=== PATIENT | male | born 1970 | race African-American/Black ===

== ENCOUNTER 2017-11-17 14:03 | Emergency (ER) | payer SELFPAY ==
[~2017-11-17] VITALS: Ht 190.5 cm; Wt 98.0 kg
[2017-11-17] MEDS ORDERED: KETOROLAC 60MG/2ML VIAL IM STA (17:30)
[2017-11-17 18:54] VITALS: BP 160/98
== END 2017-11-17 19:05 | disposition home or self-care (01) ==
LOC: ER 17:39
DX: S20.212A Contusion of left front wall of thorax, initial encounter (principal); E11.9 Type 2 diabetes mellitus without complications; I10 Essential (primary) hypertension; V48.0XXA Car driver injured in noncollision transport accident in nontraffic accident, initial encounter; W22.11XA Striking against or struck by driver side automobile airbag, initial encounter; Y93.89 Activity, other specified; Y92.89 Other specified places as the place of occurrence of the external cause; Y99.8 Other external cause status
CPT/HCPCS: 71045; 93005; 96372; 99284; J1885